=== PATIENT | female | born 2000 | race Caucasian/White ===

== ENCOUNTER 2018-07-13 15:26 | Emergency (ER) | payer SELFPAY ==
--- NOTE | 2018-07-13 15:42 | EDM.PDOC ---
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 She states that she recently found out she was , last period was June 01 which is approximately 6 weeks gestation. He states that today while at work she started having some cramping and when she went to the bathroom had blood in her underwear. She is still bleeding some but has not passed any clots. She is schedule to see Christie Graves in 1 month. Review of systems: As per history of present illness and below otherwise all systems reviewed and negative. Past medical history: As per history of present illness and as reviewed below otherwise noncontributory. Surgical history: As per history of present illness and as reviewed below otherwise noncontributory. Social history: No reported history of drug or alcohol abuse. Family history: As per history of present illness and as reviewed below otherwise noncontributory. Physical exam: General: Patient sitting comfortably in no acute distress and nontoxic appearing HEENT: Atraumatic, normocephalic, pupils reactive, negative for conjunctival pallor or scleral icterus, mucous membranes moist, throat clear, neck supple, nontender, trachea midline. No meningeal signs. Lungs: Clear to auscultation, breath sounds equal bilaterally, chest nontender. Heart: S1S2, regular, negative for clicks, rubs, or overt murmur. Abdomen: Soft, nondistended, nontender. Negative for masses or hepatosplenomegaly. Negative for costovertebral tenderness. Pelvis: Stable nontender. Genitourinary: There is a moderate amount of blood from the cervix and in vaginal canal. OS is closed. Rectal: Deferred. Extremities: Atraumatic, negative for cords or calf pain. Neurovascular unremarkable. Neuro: Awake, alert, oriented. Cranial nerves II through XII unremarkable. Cerebellum unremarkable. Motor and sensory unremarkable throughout. Exam nonfocal. Notes: Patient gave a urine sample with michelle blood from the vaginal canal and there is small clot present. Discussed with Dr. Mcfadden, he advised she follow up for lab draw in 48 hours and be seen in clinic Tuesday. Diagnostics CBC, hcg quant, ABO/Rh, OB US Therapeutics: None Prescriptions: None Impression: Vaginal bleeding in Plan: 1. Call [facility] to schedule your appointment with Dr. Mcfadden on Tuesday. Please come to ED on Saturday 07/15 for a lab draw between 4-5pm. Pelvic rest as instructed 2. Return to ED as needed as discussed Definitive disposition and diagnosis as appropriate pending reevaluation and review of above. - Related Data Allergies Allergy/AdvReac Type Severity Reaction Status Date / Time No Known Allergies Allergy Verified 07/13/18 15:50 Home Meds: Home Meds . [No Known Home Meds] 07/13/18 [History] ED ROS GENERAL - Review of Systems Review Of Systems: ROS reveals no pertinent complaints other than HPI. ED EXAM - Physical Exam Exam: See Below (see dictation) Course - Vital Signs Last Recorded V/S: Last Vital Signs Temp 97.0 F 07/13/18 15:47 Pulse 88 07/13/18 15:47 Resp 18 07/13/18 15:47 BP 128/73 07/13/18 15:47 Pulse Ox 97 07/13/18 15:47 - Orders/Labs/Meds Labs: Laboratory Tests 07/13/18 07/13/18 07/13/18 Range/Units 16:17 16:17 16:17 WBC 10.67 (4.0-11.0) K/uL RBC 4.14 L (4.30-5.90) M/uL Hgb 13.4 (12.0-16.0) g/dL Hct 38.8 (36.0-46.0) % MCV 93.7 (80.0-98.0) fL MCH 32.4 H (27.0-32.0) pg MCHC 34.5 (31.0-37.0) g/dL RDW Std Deviation 42.0 (28.0-62.0) fl RDW Coeff of Cornelio 12 (11.0-15.0) % Plt Count 284 (150-400) K/uL MPV 9.60 (7.40-12.00) fL Neut % (Auto) 65.2 (48.0-80.0) % Lymph % (Auto) 28.7 (16.0-40.0) % [facility] [place] [facility] % (Auto) 5.3 (0.0-15.0) % Eos % (Auto) 0.6 (0.0-7.0) % Baso % (Auto) 0.2 (0.0-1.5) % Neut # (Auto) 7.0 H (1.4-5.7) K/uL Lymph # (Auto) 3.1 H (0.6-2.4) K/uL [facility] # (Auto) 0.6 (0.0-0.8) K/uL Eos # (Auto) 0.1 (0.0-0.7) K/uL Baso # (Auto) 0.0 (0.0-0.1) K/uL Nucleated RBC % 0.0 /100WBC Nucleated RBCs # 0 K/uL HCG, Quant 416.0 mIU/mL Blood Type O POSITIVE Departure - Departure Time of Disposition: 18:28 Disposition: Home, Self-Care 01 Condition: Good Clinical Impression: Vaginal bleeding during - Discharge Information Referrals: PCP,None [Primary Care Provider] - Forms: ED Department Discharge Additional Instructions: The following information is given to patients seen in the emergency department who are being discharged to home. This information is to outline your options for follow-up care. We provide all patients seen in our emergency department with a follow-up referral. The need for follow-up, as well as the timing and circumstances, are variable depending upon the specifics of your emergency department visit. If you don't have a primary care physician on staff, we will provide you with a referral. We always advise you to contact your personal physician following an emergency department visit to inform them of the circumstance of the visit and for follow-up with them and/or the need for any referrals to a consulting specialist. The emergency department will also refer you to a specialist when appropriate. This referral assures that you have the opportunity for follow-up care with a specialist. All of these measure are taken in an effort to provide you with optimal care, which includes your follow-up. Under all circumstances we always encourage you to contact your private physician who remains a resource for coordinating your care. When calling for follow-up care, please make the office aware that this follow-up is from your recent emergency room visit. If for any reason you are refused follow-up, please contact the [facility] Emergency Department at and asked to speak to the emergency department charge nurse. [facility] Primary [facility] - Women[facility] [address] [place] [id number] 1. Call women's clinic to schedule your appointment with Dr. Mcfadden on Tuesday. Please come to ED on Saturday 07/15 for a lab draw between 4-5pm. Pelvic rest as instructed 2. Return to ED as needed as discussed
--- NOTE | 2018-07-13 17:55 | US ---
INDICATION: Vaginal bleeding TECHNIQUE: Ultrasound pelvis transvaginal for better assessment or to better visualize the endometrium. Real-time sonographic images with spectral and color Doppler imaging of the ovaries were obtained. COMPARISON: None FINDINGS: Uterus: 7 x 4 x 4 cm. Normal echotexture of the myometrium. No masses. Endometrium: Transvaginal imaging was performed to better evaluate the endometrium. Endometrial thickness measures 10 mm. No sign of endometrial sac, mass or fluid. Right ovary measures 3 x 2 x 2 cm and left ovary measures 3 x 2 x 2 cm. No ovarian or adnexal masses. Normal arterial and venous blood flow is demonstrated in both ovaries. Cul-de-sac: Moderate amount of free fluid. IMPRESSION: There is a moderate amount of free fluid in the pelvis of uncertain etiology. Remainder of the exam is unremarkable. No sign of or other specific finding to explain vaginal bleeding. Dictated by Jaime Espinal MD @ Jul 13 2018 5:47PM Signed by Dr. Jaime Espinal @ Jul 13 2018 5:54PM
== END 2018-07-13 18:40 | disposition home or self-care (01) ==
LOC: MW.ED 15:26
DX: O20.9 Hemorrhage in early pregnancy, unspecified (principal); Z3A.01 Less than 8 weeks gestation of pregnancy
CPT/HCPCS: 36415; 76830; 76830-26; 84702; 85025; 86900; 86901; 99282; 99284-25